=== PATIENT | female | born 1990 | race African-American/Black ===

== ENCOUNTER 2016-08-29 04:08 | Emergency (ER) | payer MEDICAID, OTHER ==
[~2016-08-29] VITALS: Ht 170.2 cm; Wt 90.0 kg
[~2016-08-29 04:08] MED LIST: HYDR50 PO; LORA0.5T PO
[2016-08-29 04:15] VITALS: BP 147/90; PULSE 87; RESP 18; TEMP 98.3; O2SAT 100
[2016-08-29] MEDS ORDERED: NORC5TAB PO (04:41)
[2016-08-29] MEDS ORDERED: methylPREDNISolone SOD SUCC 125 MG/2 ML VIAL IM ONE (04:45)
[2016-08-29] MEDS ORDERED: diphenhydrAMINE HCL 50 MG/ML VIAL IM ONE (04:45)
--- NOTE | 2016-08-29 05:04 | PD ---
HPI Chief Complaint: Respiratory Symptoms Time Seen by Provider: 04:23 Travel History International Travel<30 days: No Contact w/Intl Traveler<30days: No Traveled to known affect area: No History of Present Illness HPI This is a 26-year-old female who presents to the emergency department reporting that she feels something in the back of her throat like her throat is closing. She says she feels a flap that's going in and out and is worse when she lays flat making it difficult for her to breathe and difficult for her to sleep. This is never happened to her before. She does struggle with anxiety. She denies any rash, itching, wheezing or shortness of breath. PFSH Past Medical History Asthma: Yes (CHILDHOOD) Heart Rhythm Problems: No Cardiac Catheterization: No Cardiovascular Problems: No High Cholesterol: No Congestive Heart Failure: No Diabetes: No Diminished Hearing: No Immunizations Current: No ?: Not LMP: 08/16/16 : 2 Para: 1 Past Surgical History Surgical History: No Previous Surgery Coronary Artery Bypass Graft: No Social History Alcohol Use: Yes (occassional wine) Tobacco Use: No Substance Use: No Allergies-Medications (Allergen,Severity, Reaction): Coded Allergies: No Known Allergies (Verified , 08/29/16) Reported Meds & Prescriptions Reported Meds & Active Scripts Active Reported [place] (Hydrocodone-Acetaminophen) 5-325 mg Tab 1-2 Tab PO Q6H PRN Review of Systems Except as stated in HPI: all other systems reviewed are Neg Physical Exam Narrative GENERAL:Well appearing, no acute distress SKIN: Warm and dry. HEAD: Atraumatic. Normocephalic. EYES: Pupils equal and round. No injection or drainage. ENT: Moist mucous membrane. Normal-appearing posterior pharynx with a normal uvula, no edema of the epiglottis which can be visualized. NECK: Trachea midline. CARDIOVASCULAR: Regular rate and rhythm. No murmur appreciated. RESPIRATORY: Clear to auscultation. Breath sounds equal bilaterally. GASTROINTESTINAL: Abdomen soft, non-tender, nondistended. MUSCULOSKELETAL: No obvious deformities. NEUROLOGICAL: Awake and alert. No obvious cranial nerve deficits. Moving all extremities. PSYCHIATRIC: Appropriate mood and affect; insight and judgment normal. Data Data Last Documented VS Vital Signs Date Time Temp Pulse Resp B/P Pulse Ox O2 Delivery O2 Flow Rate FiO2 08/29/16 04:39 90 18 100 08/29/16 04:15 98.3 147/90 Orders Diphenhydramine Inj (Benadryl Inj) (08/29/16 04:45) Methylprednisolone So Succ Inj (Solumedr (08/29/16 04:45) MDM Medical Decision Making Medical Screen Exam Complete: Yes Emergency Medical Condition: Yes Interpretation(s) Afebrile, no tachycardia, hypertensive Differential Diagnosis Anaphylaxis, uvulitis, angioedema, anxiety allergic reaction Narrative Course This is a 26-year-old female who presents to the emergency department with a strange sensation in the back of her throat feeling like her throat is closing. She has a normal-appearing posterior pharynx with no edema. She has no wheezing or hoarseness on exam. She is resting comfortably with 100% oxygen saturation. I suspect her symptoms are due to anxiety but I treated her for allergic reaction to see if her symptoms improve. Patient feels better. She will be discharged home. Diagnosis Primary Impression: Throat discomfort Patient Instructions: General Instructions Additional Instructions: If you develop severe chest pain, shortness of breath, sweating, lightheadedness , dizziness or difficulty breathing return to the emergency department immediately. Followup with your primary care physician in 2-3 days if your symptoms are not resolved. Med/Other Pt SpecificInfo: No Change to Meds Disposition: 01 DISCHARGE HOME Condition: Stable Maria Quintana MD Aug 29, 2016 05:04
== END 2016-08-29 06:31 | disposition home or self-care (01) ==
LOC: NEPC 04:08
DX: R09.89 Other specified symptoms and signs involving the circulatory and respiratory systems (principal); Z87.09 Personal history of other diseases of the respiratory system
CPT/HCPCS: 96372; 99283; J1200; J2930

== ENCOUNTER 2017-03-15 19:16 | Observation (INO) | payer MEDICAID ==
[~2017-03-15] VITALS: Ht 170.2 cm; Wt 88.0 kg
[~2017-03-15 19:16] MED LIST changes: -HYDR50 PO; -LORA0.5T PO; +NORC5TAB PO
[2017-03-15 19:17] VITALS: BP 137/98; PULSE 88; RESP 16; TEMP 99.8; O2SAT 100
[2017-03-15] MEDS ORDERED: CYCL5TAB PO (21:17)
[2017-03-15] MEDS ORDERED: HYDR-3366 PO (21:19)
--- NOTE | 2017-03-15 21:20 | PD ---
HPI Chief Complaint: Respiratory Symptoms Time Seen by Provider: 21:06 Travel History International Travel<30 days: No Contact w/Intl Traveler<30days: No Traveled to known affect area: No History of Present Illness HPI Patient comes in complaining for shortness of breath that began shortly after leaving work today around 4 or 5:00. Patient states it was constant. Patient states it has improved since she arrived at the ER. Patient denies any symptoms currently. Patient reports associated feeling of fullness sensation in her throat. Patient states her daughter was sick yesterday of nausea and vomiting since resolved. Denies any fevers, chest pain, numbness or tingling anywhere, , loss change in bowel or bladder, change in vision, or headaches. Patient reports she has a history of anxiety and used to be on Ativan for this, but is not taking anything for it currently. Patient states this seems similar to previous anxiety attacks, aside from the way sensation of throat. Patient denies any actual pain in her throat or difficulty swallowing. PFSH Past Medical History Asthma: Yes (CHILDHOOD) Anxiety: Yes Heart Rhythm Problems: No Cardiac Catheterization: No Cardiovascular Problems: No High Cholesterol: No Congestive Heart Failure: No Diabetes: No Diminished Hearing: No GERD: Yes Immunizations Current: No ?: Not LMP: 03/06/17 : 2 Para: 1 Past Surgical History Surgical History: No Previous Surgery Coronary Artery Bypass Graft: No Social History Alcohol Use: Yes (occassional wine) Tobacco Use: No Substance Use: No Allergies-Medications (Allergen,Severity, Reaction): Coded Allergies: No Known Allergies (Verified , 03/15/17) Reported Meds & Prescriptions Reported Meds & Active Scripts Active Reported [place] (Hydrocodone-Acetaminophen) 10-325 Mg Tab 1 Tab PO Q6H PRN Flexeril (Cyclobenzaprine HCl) 5 Mg Tab 5 Mg PO HS Review of Systems Except as stated in HPI: all other systems reviewed are Neg Physical Exam Narrative GENERAL: Well-developed, overly nourished, in no acute distress, and non-ill appearing. SKIN: Focused skin assessment warm and dry. HEAD: Atraumatic. Normocephalic. EYES: Pupils equal and round. EOMI. No scleral icterus. No injection or drainage. ENT: No nasal bleeding or discharge. Mucous membranes pink and moist. Posterior pharynx moderately erythematous without exudate. Uvula is midline. Patient is able swallow own saliva. NECK: Trachea midline. Supple. No nuclear rigidity. CARDIOVASCULAR: Regular rate and rhythm. No murmur appreciated. RESPIRATORY: No accessory muscle use. No respiratory distress. Clear to auscultation. Breath sounds equal bilaterally. Patient will speak in full sentences without difficulty. MUSCULOSKELETAL: No obvious deformities. No clubbing. No cyanosis. No edema. Full range of motion. NEUROLOGICAL: Awake and alert. No obvious cranial nerve deficits. Motor grossly within normal limits. Normal speech. PSYCHIATRIC: Appropriate mood and affect; insight and judgment normal. Data Data Last Documented VS Vital Signs Date Time Temp Pulse Resp B/P (MAP) Pulse Ox O2 Delivery O2 Flow Rate FiO2 03/15/17 22:47 99 Nasal Cannula 2.00 03/15/17 21:12 80 18 03/15/17 19:17 99.8 137/98 (111) Orders Orders Chest, Single Ap (03/15/17 ) Electrocardiogram (03/15/17 ) Group A Rapid Strep Screen (03/15/17 21:16) Ecg Monitoring (03/15/17 21:16) Oximetry (03/15/17 21:16) Sodium Chloride 0.9% Flush (Ns Flush) (03/15/17 21:30) Electrocardiogram (03/15/17 21:54) Basic Metabolic Panel (Bmp) (03/15/17 21:54) Ckmb (Isoenzyme) Profile (03/15/17 21:54) Complete Blood Count With Diff (03/15/17 21:54) Magnesium (Mg) (03/15/17 21:54) Prothrombin Time / Inr (Pt) (03/15/17 21:54) Act Partial Throm Time (Ptt) (03/15/17 21:54) Troponin I (03/15/17 21:54) Bilateral Bp Monitoring (03/15/17 21:54) Iv Access Insert/Monitor (03/15/17 21:54) Oxygen Administration (03/15/17 21:54) Sodium Chloride 0.9% Flush (Ns Flush) (03/15/17 22:00) Strep Culture (Group A) (03/15/17 21:20) MDM Medical Decision Making Medical Screen Exam Complete: Yes Emergency Medical Condition: Yes Interpretation(s) EKG reviewed by Dr. Greenfield shows sinus rhythm with ventricular rate is 65. No STEMI. Chest x-ray read by radiologist shows: No evidence of acute cardiopulmonary disease. Differential Diagnosis Arrhythmia, anxiety attack, pneumonia, dyspnea, strep pharyngitis, viral pharyngitis, other Narrative Course Patient was seen and exam. Initial appropriate radiological studies were ordered. After patient's EKG was reviewed by Dr. Greenfield, additional laboratory studies were ordered. Patient was signed out to Dr. Greenfield at the end of my shift. Please see his dictation for final diagnosis and disposition. Nguyễn Hayward Mar 15, 2017 21:20
[2017-03-15] MEDS ORDERED: SODIUM CHLORIDE 0.9% FLUSH 10 ML FLUSH IV FLUSH PRN (21:30)
--- NOTE | 2017-03-15 21:56 | RADRPT ---
EXAM DATE/TIME: 03/15/2017 21:23 [facility] COMPARISON: CHEST SINGLE AP, March 11, 2016, 21:22. INDICATIONS : Short of breath. MEDICAL HISTORY : None. SURGICAL HISTORY : None. ENCOUNTER: Initial ACUITY: 1 day PAIN SCORE: 0/10 LOCATION: Bilateral chest FINDINGS: A single view of the chest demonstrates the lungs to be symmetrically aerated without evidence of mas s, infiltrate or effusion. The cardiomediastinal contours are unremarkable. Osseous structures are intact. CONCLUSION: No evidence of acute cardiopulmonary disease. Garry Storey MD on March 15, 2017 at 21:55 Board Certified Radiologist. This report was verified electronically.
[2017-03-15] MEDS ORDERED: SODIUM CHLORIDE 0.9% FLUSH 10 ML FLUSH IVF PRN (22:00)
--- NOTE | 2017-03-15 22:50 | PD ---
Physical Exam Date Seen by Provider: Mar 15, 2017 Narrative GENERAL: SKIN: Warm and dry. HEAD: Atraumatic. Normocephalic. EYES: Pupils equal and round. No scleral icterus. No injection or drainage. ENT: No nasal bleeding or discharge. Mucous membranes pink and moist. NECK: Trachea midline. No JVD. CARDIOVASCULAR: Regular rate and rhythm. RESPIRATORY: No accessory muscle use. Clear to auscultation. Breath sounds equal bilaterally. GASTROINTESTINAL: Abdomen soft, non-tender, nondistended. Hepatic and splenic margins not palpable. MUSCULOSKELETAL: Extremities without clubbing, cyanosis, or edema. No obvious deformities. NEUROLOGICAL: Awake and alert. No obvious cranial nerve deficits. Motor grossly within normal limits. Five out of 5 muscle strength in the arms and legs. Normal speech. PSYCHIATRIC: Appropriate mood and affect; insight and judgment normal. Data Data Last Documented VS Vital Signs Date Time Temp Pulse Resp B/P (MAP) Pulse Ox O2 Delivery O2 Flow Rate FiO2 03/15/17 22:51 94 18 147/86 (106) 100 Nasal Cannula 2.00 03/15/17 19:17 99.8 Orders Orders Chest, Single Ap (03/15/17 ) Electrocardiogram (03/15/17 ) Group A Rapid Strep Screen (03/15/17 21:16) Ecg Monitoring (03/15/17 21:16) Oximetry (03/15/17 21:16) Sodium Chloride 0.9% Flush (Ns Flush) (03/15/17 21:30) Basic Metabolic Panel (Bmp) (03/15/17 21:54) Ckmb (Isoenzyme) Profile (03/15/17 21:54) Complete Blood Count With Diff (03/15/17 21:54) Magnesium (Mg) (03/15/17 21:54) Prothrombin Time / Inr (Pt) (03/15/17 21:54) Act Partial Throm Time (Ptt) (03/15/17 21:54) Troponin I (03/15/17 21:54) Bilateral Bp Monitoring (03/15/17 21:54) Iv Access Insert/Monitor (03/15/17 21:54) Oxygen Administration (03/15/17 21:54) Sodium Chloride 0.9% Flush (Ns Flush) (03/15/17 22:00) Strep Culture (Group A) (03/15/17 21:20) CKMB (03/15/17 22:45) CKMB% (03/15/17 22:45) D-Dimer (03/16/17 00:16) Admit Order (Ed Use Only) (03/16/17 01:07) Place In Observation (03/16/17 01:08) Activity Bed Rest With Brp (03/16/17 01:08) Vital Signs (Adult) Q4H (03/16/17 01:08) Cardiac Rhythm .As Directed (03/16/17 01:08) Notify Dr: Other .PRN (03/16/17 01:08) Notify Dr. Parameters (03/16/17 01:08) Resp Oxygen Nasal Cannula (03/16/17 ) Ckmb (Isoenzyme) Profile (03/16/17 01:08) Ckmb (Isoenzyme) Profile (03/16/17 04:08) Troponin I (03/16/17 01:08) Troponin I (03/16/17 04:08) Electrocardiogram (03/16/17 01:08) Electrocardiogram (03/16/17 04:08) ^ Obtain (03/16/17 01:08) Sodium Chloride 0.9% Flush (Ns Flush) (03/16/17 09:00) Battery Parts Assembler / Telemetry EDVIN.Q8H (03/16/17 01:08) Labs Laboratory Tests Test 03/15/17 22:45 White Blood Count 7.5 TH/MM3 Red Blood Count 4.44 MIL/MM3 Hemoglobin 11.6 GM/DL Hematocrit 35.5 % Mean Corpuscular Volume 80.1 FL Mean Corpuscular Hemoglobin 26.1 PG Mean Corpuscular Hemoglobin Concent 32.7 % Red Cell Distribution Width 14.1 % Platelet Count 259 TH/MM3 Mean Platelet Volume 9.7 FL Neutrophils (%) (Auto) 65.7 % Lymphocytes (%) (Auto) 26.9 % Monocytes (%) (Auto) 6.4 % Eosinophils (%) (Auto) 0.2 % Basophils (%) (Auto) 0.8 % Neutrophils # (Auto) 5.0 TH/MM3 Lymphocytes # (Auto) 2.0 TH/MM3 Monocytes # (Auto) 0.5 TH/MM3 Eosinophils # (Auto) 0.0 TH/MM3 Basophils # (Auto) 0.1 TH/MM3 CBC Comment DIFF FINAL Differential Comment Prothrombin Time 11.0 SEC Prothromb Time International Ratio 1.0 RATIO Activated Partial Thromboplast Time 28.9 SEC D-Dimer Quantitative (PE/DVT) 0.23 MG/L FEU Blood Urea Nitrogen 11 MG/DL Creatinine 0.88 MG/DL Random Glucose 89 MG/DL Calcium Level 8.5 MG/DL Magnesium Level 2.0 MG/DL Sodium Level 140 MEQ/L Potassium Level 3.7 MEQ/L Chloride Level 108 MEQ/L Carbon Dioxide Level 25.3 MEQ/L Anion Gap 7 MEQ/L Estimat Glomerular Filtration Rate 93 ML/MIN Total Creatine Kinase 230 U/L Creatine Kinase MB 2.2 NG/ML Creatine Kinase MB % 1.0 % Troponin I LESS THAN 0.02 NG/ML [facility] Medical Record Reviewed: Yes Supervised Visit with ARTIS: No Interpretation(s) EKG TODAY SHOWS CONDUCTION DELAY , NSR 65, NO TOMBSTONE STEMI PATTERN HOWEVER DOES SHOW E/O LVH AND JPOINT ELEV...ONLY MAJOR CONCERN IS THAT IS COMPLETELY DIFFERENT FROM PRIOR EKG DONE 1 YR AGO, ALSO REVIEWED ECHO DONE 2YR PRIOR WHICH ONLY SHOWED TRICUSPID REGURG 1+ Narrative Course ABNL EKG D/W PATIENT, PCP IS DR POP VARGAS Diagnosis Primary Impression: ABNORMAL EKG Admitting Information Admitting Physician Requests: Observation Scripts Pantoprazole (Pantoprazole) 40 Mg Tab 40 MG PO DAILY for Reflux, #30 TAB 2 Refills Prov: Katalina Barrios 03/16/17 Palmer Greenfield MD Mar 15, 2017 22:50
[2017-03-15 22:51] VITALS: BP 147/86; PULSE 94; RESP 18; O2SAT 100
[2017-03-15 23:08] LABS: BASOPHIL # 0.1 TH/MM3 (0-0.2); BASOPHIL % 0.8 % (0.0-2.0); EOSINOPHIL % 0.2 % (0.0-4.0); HEMATOCRIT 35.5 % (35.0-46.0); HEMO FLAGS DIFF FINAL; LYMPH % 26.9 % (9.0-44.0); MEAN CELL VOLUME 80.1 FL (80.0-100.0); MEAN CORPUSCULAR HEMOGLOBIN 26.1 PG (27.0-34.0); MEAN CORPUSCULAR HGB CONC 32.7 % (32.0-36.0); MONO % 6.4 % (0.0-8.0); NEUT % 65.7 % (16.0-70.0); PLATELET COUNT 259 TH/MM3 (150-450); RED BLOOD COUNT 4.44 MIL/MM3 (4.00-5.30); RED CELL DISTRIBUTION WIDTH 14.1 % (11.6-17.2); WHITE BLOOD COUNT 7.5 TH/MM3 (4.0-11.0)
[2017-03-15 23:19] LABS: ANION GAP 7 MEQ/L (5-15); BICARBONATE 25.3 MEQ/L (21.0-32.0); BLOOD UREA NITROGEN 11 MG/DL (7-18); CHLORIDE 108 MEQ/L (98-107); GLOMERULAR FILTRATION RATE 93 ML/MIN (>89); POTASSIUM 3.7 MEQ/L (3.5-5.1); SODIUM (NA) 140 MEQ/L (136-145)
[2017-03-15 23:23] LABS: APTT (PATIENT) 28.9 SEC (24.3-30.1); CREATINE KINASE 230 U/L (26-192)
[2017-03-15 23:35] LABS: CKMB 2.2 NG/ML (0.5-3.6)
[2017-03-16 01:39] VITALS: O2SAT 100
[2017-03-16 02:31] LABS: CREATINE KINASE 234 U/L (26-192)
[2017-03-16 02:35] VITALS: BP 135/86; PULSE 70; RESP 19; TEMP 98.1; O2SAT 100
[2017-03-16 02:37] VITALS: PULSE 72
[2017-03-16 02:49] LABS: CKMB 1.9 NG/ML (0.5-3.6)
[2017-03-16 04:01] VITALS: PULSE 54
[2017-03-16 05:11] VITALS: BP 133/76; PULSE 64; RESP 18; TEMP 98.1; O2SAT 100
[2017-03-16 05:11] LABS: CREATINE KINASE 212 U/L (26-192)
[2017-03-16 05:24] LABS: CKMB 1.7 NG/ML (0.5-3.6)
[2017-03-16 07:07] VITALS: PULSE 76
--- NOTE | 2017-03-16 08:06 | HHI.HP ---
HPI Primary Care Physician Juan Vuong DO Chief Complaint Chest fullness History of Present Illness 27-year-old female with history of GERD, chronic back pain, Oneil-Parkinson- White, and anxiety presents to emergency room for further evaluation of chest fullness. Onset yesterday between 3-4 p.m. reports eating a large bowl of noodles and immediately developing acid reflux symptoms, stating "particles of food was coming up my throat and I had spit them out." After one hour of acid reflux symptoms, she developed chest fullness. Duration of chest fullness 3 hours. No associated symptoms of nausea, vomiting, shortness of breath, diaphoresis, or dysphasia. Denied any chest pain, pressure, or discomfort. Endorses similar pain in the past although this episode lasted longer than normal. States she become anxious over length symptoms occurred and came to ER for further evaluation. Review of Systems General: No fatigue,weakness, fever, chills, recent illness, or change in appetite HEENT: No HARRISON, no dysphasia CV: As stated above. No current CP or pressure. History of palpitations, as not experienced palpation in many years. History of WPW, reports seeing a airways operations specialist years ago and was told she no longer needed to follow with No dizziness. RESP: No SOB, cough, or history of asthma GI: History of GERD for at least one year, no longing taking any medication for GERD. No nausea, vomiting, bowel changes, pain, or blood in the stool. Increase of weight gain she related to poor eating habits. : No dysuria, urgency, frequent UTI, or history of kidney stones CUT OFF SAW OPERATOR PIPE BLANKS: Last menses 03/06/2017, denies chance of , not use any control and is sexually active EXT: No lower leg edema, no paraesthesias MS: Chronic back pain daily, taking [place] or Flexeril as needed. Reports history of x2 bulging disks. No change in ROM. NEURO: No difficulty with balance, LOC, or motor/sensory deficits PSYCH: History of anxiety, states she feels that maybe yesterday symptoms aggravated by anxiety. no depression. Past Family Social History Allergies: Coded Allergies: No Known Allergies (Verified , 03/15/17) Past Medical History GERD, chronic back pain, WPW, anxiety Past Surgical History None Reported Medications Active Reported [place] (Hydrocodone-Acetaminophen) 10-325 Mg Tab 1 Tab PO Q6H PRN Flexeril (Cyclobenzaprine HCl) 5 Mg Tab 5 Mg PO HS Active Ordered Medications Current Medications Medications (Trade) Dose Ordered Sig/Lashanda Route Start Time Stop Time Status Last Admin (NS Flush) 2 ml UNSCH PRN IV FLUSH 03/15/17 21:30 (NS Flush) 2 ml UNSCH PRN IVF 03/15/17 22:00 (NS Flush) 2 ml BID IV FLUSH 03/16/17 09:00 Family History Mother-hypertension, Father- [place] age 60, diabetic Social History No known diabetes, hypertension, or hyperlipidemia. Has been told she is a borderline diabetic in the past. Lifelong nonsmoker, glass of wine every other weekend, denies any illegal drug use. Lives with boyfriend who is the father of her 8 year old. 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 Endorses a sedentary lifestyle. Past Cardiac Testing Physical Exam Vital Signs Vital Signs Date Time Temp Pulse Resp B/P (MAP) Pulse Ox O2 Delivery O2 Flow Rate FiO2 03/16/17 07:07 76 03/16/17 05:11 98.1 64 18 133/76 (95) 100 03/16/17 04:01 54 03/16/17 02:37 72 03/16/17 02:35 98.1 70 19 135/86 (102) 100 03/16/17 02:20 03/16/17 01:39 100 21 03/15/17 22:51 94 18 147/86 (106) 100 Nasal Cannula 2.00 03/15/17 22:47 99 Nasal Cannula 2.00 03/15/17 21:12 80 18 99 Room Air 03/15/17 19:17 99.8 88 16 137/98 (111) 100 Room Air Physical Exam GENERAL: Alert WN, WD, NAD, pleasant, female HEAD: NC, AT EYES: Sclera clear, conjunctiva without injection, pupils equal and round ENT: Mucous membranes pink and moist NECK: Supple, no masses, trachea midline CV: RRR, without murmur, rub, gallop, no JVD, S1-S2 no S3-S4. RESP: Clear lungs throughout bilateral, no crackles, wheeze, rhonchi, symmetrical chest rise, nonlabored, able to speak in full sentences ABD: Soft, NT, ND, no masses, positive bowel tones EXT: Pulses +24, no dependent edema MS: Normal tone 4 extremities, nontender, no obvious deformities, full range of motion NEURO: CN II through CN XII grossly intact, motor strength 5/5 PSYCH: A+O 3, pleasant affect, appropriate speech, appropriate mood and affect , insight and judgment SKIN: Normal turgor, normal texture, no lesions, no rashes, even hair distribution Laboratory Laboratory Tests Test 03/15/17 22:45 03/16/17 02:00 03/16/17 04:19 White Blood Count 7.5 Red Blood Count 4.44 Hemoglobin 11.6 Hematocrit 35.5 Mean Corpuscular Volume 80.1 Mean Corpuscular Hemoglobin 26.1 Mean Corpuscular Hemoglobin Concent 32.7 Red Cell Distribution Width 14.1 Platelet Count 259 Mean Platelet Volume 9.7 Neutrophils (%) (Auto) 65.7 Lymphocytes (%) (Auto) 26.9 Monocytes (%) (Auto) 6.4 Eosinophils (%) (Auto) 0.2 Basophils (%) (Auto) 0.8 Neutrophils # (Auto) 5.0 Lymphocytes # (Auto) 2.0 Monocytes # (Auto) 0.5 Eosinophils # (Auto) 0.0 Basophils # (Auto) 0.1 CBC Comment DIFF FINAL Differential Comment Prothrombin Time 11.0 Prothromb Time International Ratio 1.0 Activated Partial Thromboplast Time 28.9 D-Dimer Quantitative (PE/DVT) 0.23 Blood Urea Nitrogen 11 Creatinine 0.88 Random Glucose 89 Calcium Level 8.5 Magnesium Level 2.0 Sodium Level 140 Potassium Level 3.7 Chloride Level 108 Carbon Dioxide Level 25.3 Anion Gap 7 Estimat Glomerular Filtration Rate 93 Total Creatine Kinase 230 234 212 Creatine Kinase MB 2.2 1.9 1.7 Creatine Kinase MB % 1.0 0.8 0.8 Troponin I LESS THAN 0.02 LESS THAN 0.02 LESS THAN 0.02 Date/Time Source Procedure Growth Status 03/15/17 21:20 Throat Group A Streptococcus Screen Pending Received Result Diagram: 03/15/17 2245 03/15/17 2245 Imaging Last Impressions Chest X-Ray 03/15/17 0000 Signed Impressions: Service Date/Time: Wednesday, March 15, 2017 21:23 - CONCLUSION: No evidence of acute cardiopulmonary disease. Garry Storey MD Course EKG NSB, no st t segment changes. Q waves inferior related to Hannon Parkinson White pattern Caprini VTE Risk Assessment Caprini VTE Risk Assessment: No/Low Risk (score <= 1) Caprini Risk Assessment Model Point Value = 1 Point Value = 2 Point Value = 3 Point Value = 5 Age 41-60 Minor surgery BMI > 25 kg/m2 Swollen legs Varicose veins or History of unexplained or recurrent spontaneous Oral contraceptives or hormone replacement Sepsis (< 1 month) Serious lung disease, including pneumonia (< 1 month) Abnormal pulmonary function Acute myocardial infarction Congestive heart failure (< 1 month) History of inflammatory bowel disease Medical patient at bed rest Age 61-74 Arthroscopic surgery Major open surgery (> 45 min) Laparoscopic surgery (> 45 min) Malignancy Confined to bed (> 72 hours) Immobilizing plaster cast Central venous access Age >= 75 History of VTE Family history of VTE Factor V Leiden Prothrombin [id number] Lupus anticoagulant Anticardiolipin antibodies Elevated serum homocysteine Heparin-induced thrombocytopenia Other congenital or acquired thrombophilia Stroke (< 1 month) Elective arthroplasty Hip, pelvis, or leg fracture Acute spinal cord injury (< 1 month) Prophylaxis Regimen Total Risk Factor Score Risk Level Prophylaxis Regimen 0-1 Low Early ambulation 2 Moderate Order ONE of the following: *Sequential Compression Device (SCD) *Heparin 5000 units SQ BID 3-4 Higher Order ONE of the following medications: *Heparin 5000 units SQ TID *Enoxaparin/Lovenox 40 mg SQ daily (WT < 150 kg, CrCl > 30 mL/min) *Enoxaparin/Lovenox 30 mg SQ daily (WT < 150 kg, CrCl > 10-29 mL/min) *Enoxaparin/Lovenox 30 mg SQ BID (WT < 150 kg, CrCl > 30 mL/min) AND/OR *Sequential Compression Device (SCD) 5 or more Highest Order ONE of the following medications: *Heparin 5000 units SQ TID (Preferred with Epidurals) *Enoxaparin/Lovenox 40 mg SQ daily (WT < 150 kg, CrCl > 30 mL/min) *Enoxaparin/Lovenox 30 mg SQ daily (WT < 150 kg, CrCl > 10-29 mL/min) *Enoxaparin/Lovenox 30 mg SQ BID (WT < 150 kg, CrCl > 30 mL/min) AND *Sequential Compression Device (SCD) Assessment and Plan Assessment and Plan #1 Atypical chest discomfort-admitted to chest pain center. Ruled out with 3 sets of EKGs, cardiac symptoms, and monitored overnight. Seen and evaluated by Dr. Marcial Crane. Reassurance chest complaint of fullness no cardiac related but related to her long standing acid reflux symptoms. No further cardiac testing required. Discharge later this morning. #2 GERD-start Protonix 40 mg daily, follow up with PCP in 3 weeks, discuss with PCP possible GI consult if symptoms persist, instructed she may take Tums liberally as needed #3 Anxiety-encouraged increasing her daily activity to relieve intermittent anxiety symptoms, follow a healthy diet, adapt to healthy sleeping habits, and getting enough fluids, avoiding caffeinated beverages #4 Obesity-discussed in length importance of weight lost, encouraged decreasing sugar and flour intake, increase diet to include fruits, vegetables, and lean proteins. Educated diagnosis of borderline diabetes is an opportunity to take health seriously and be proactive with diagnosis as diabetes is a progressive disease. Time for questions and answers provided. #5 Chronic back pain-discussed current CDC guidelines do not support opioids for chronic back pain, encouraged core strength exercises, stretching or yoga, and weight loss. Patient agreeable to adapt lifestyle changes. Follow up with PCP for further lifestyle recommendations to assist her with lifestyle changes. Katalina Barrios Mar 16, 2017 08:06
[2017-03-16] MEDS ORDERED: PANT40TA3 PO (08:19)
--- NOTE | 2017-03-16 08:19 | HHI.DCPOC ---
Discharge Care Plan Diagnosis: (1) GERD (gastroesophageal reflux disease) Goals to Promote Your Health * To prevent worsening of your condition and complications * To maintain your health at the optimal level Directions to Meet Your Goals Take your medications as prescribed Follow your dietary instruction Follow activity as directed Keep your appointments as scheduled Take your immunizations and boosters as scheduled If your symptoms worsen call your PCP, if no PCP go to Urgent Care Center or Emergency Room Smoking is Dangerous to Your Health. Avoid second hand smoke Call the 24-hour hour crisis hotline for domestic abuse at Katalina Barrios Mar 16, 2017 08:19
[2017-03-16] MEDS ORDERED: SODIUM CHLORIDE 0.9% FLUSH 10 ML FLUSH IV FLUSH SCH (09:00)
[2017-03-16] MEDS ORDERED: PANTOPRAZOLE SOD 40 MG DELAYED RELEASE TAB PO SCH (09:00)
--- NOTE | 2017-03-16 14:59 | EKG ---
Date Performed: 03/16/2017 Time Performed: 05:20:56 PTAGE: 27 years EKG: SINUS BRADYCARDIA WPW ABNORMAL ECG PREVIOUS TRACING : 03/16/2017 02.03 Since previous tracing, no significant change noted DOCTOR: Marcial Crane Interpretating Date/Time 03/16/2017 14:59:14
--- NOTE | 2017-03-16 15:00 | EKG ---
Date Performed: 03/16/2017 Time Performed: 02:03:26 PTAGE: 27 years EKG: Sinus rhythm WITH SHORT GA INTERVAL WPW PREVIOUS TRACING : 03/15/2017 21.51 Since previous tracing, no significant change noted DOCTOR: Marcial Crane Interpretating Date/Time 03/16/2017 15:00:10
--- NOTE | 2017-03-16 15:01 | EKG ---
Date Performed: 03/15/2017 Time Performed: 21:38:41 PTAGE: 27 years EKG: Sinus rhythm WITH SHORT GA INTERVAL WPW PREVIOUS TRACING : 03/11/2016 21.06 DOCTOR: Marcial Crane Interpretating Date/Time 03/16/2017 15:01:07
== END 2017-03-16 10:07 | disposition home or self-care (01) ==
LOC: NEPE 19:16 → NEDA 03-16 01:09 → NEPFCDU 03-16 02:31
PROVIDERS: ADMIT Internal Medicine Cardiovascular Disease; ATTEND Internal Medicine Cardiovascular Disease
DX: R07.89 Other chest pain (principal); K21.9 Gastro-esophageal reflux disease without esophagitis; R73.03 Prediabetes; F41.9 Anxiety disorder, unspecified; G89.29 Other chronic pain; M54.9 Dorsalgia, unspecified; I45.6 Pre-excitation syndrome; E66.9 Obesity, unspecified; Z68.30 Body mass index [BMI] 30.0-30.9, adult; R94.31 Abnormal electrocardiogram [ECG] [EKG]; J45.909 Unspecified asthma, uncomplicated
CPT/HCPCS: 71010; 80048; 82550; 82552; 83735; 84484; 85025; 85379; 85610; 85730; 87081; 87880; 93005; 99285; G0378

== ENCOUNTER 2017-07-27 22:31 | Emergency (ER) | payer MEDICAID ==
[~2017-07-27 22:31] MED LIST changes: +CYCL5TAB PO; +HYDR-3366 PO; -NORC5TAB PO; +PANT40TA3 PO
[2017-07-27 22:34] VITALS: BP 140/89; PULSE 116; RESP 16; TEMP 98.1; O2SAT 100
== END 2017-07-28 00:20 | disposition left against medical advice (07) ==
LOC: NED 22:31
DX: R03.0 Elevated blood-pressure reading, without diagnosis of hypertension (principal)
CPT/HCPCS: 99281